=== PATIENT | male | born 1975 | race Caucasian/White ===

== ENCOUNTER 2019-01-29 17:23 | Emergency (ER) | payer SELFPAY ==
[~2019-01-29] VITALS: Ht 167.6 cm; Wt 68.0 kg
[2019-01-29 17:35] VITALS: BP 112/65
[2019-01-29] MEDS ORDERED: LIDOCAINE 1% 500 MG/50 ML VIAL INJ SCH (17:40)
--- NOTE | 2019-01-29 17:43 | NUR ---
PT TO ED 05.
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
[2019-01-29] MEDS ORDERED: MORPHINE SULFATE 2 MG/ML SYR IM ONE (17:50)
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
[2019-01-29] MEDS ORDERED: LIDOCAINE MPF 1% 5mL VIAL ONE (17:55)
--- NOTE | 2019-01-29 17:55 | NUR ---
COMPLETE ASSESSMENT COMPLETED BY NAMAN SORENSON
[2019-01-29] MEDS ORDERED: CLINDAMYCIN 600 MG/4 ML VIAL IM ONE (18:25)
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
--- NOTE | 2019-01-29 19:28 | NUR ---
WOUND CHECKED ON LEFT ELBOW, STILL BLEEDING. DR RICHARDS INFORMED, WILL HOLD PRESSURE FOR 10 MINUTES AND SEE IF THE BLEEDING STOPS. BEFORE APPLYING SLING AND SPLINT.
[2019-01-29 20:01] VITALS: BP 112/65
--- NOTE | 2019-01-29 20:01 | NUR ---
Patient discharged with v/s stable. Written and verbal after care instructions given and explained. Patient alert, oriented and verbalized understanding of instructions. Ambulatory with steady gait. All questions addressed prior to discharge. ID band removed. Patient advised to follow up with PMD. Rx of NORCO, NARCAN, CLINDAMYCIN given. Patient educated on indication of medication including possible reaction and side effects. Opportunity to ask questions provided and answered.
== END 2019-01-29 20:01 | disposition home or self-care (01) ==
LOC: MED 17:23
DX: S42.412A Displaced simple supracondylar fracture without intercondylar fracture of left humerus, initial encounter for closed fracture (principal); S01.01XA Laceration without foreign body of scalp, initial encounter; Y04.0XXA Assault by unarmed brawl or fight, initial encounter; Y93.89 Activity, other specified; Y92.89 Other specified places as the place of occurrence of the external cause; Y99.8 Other external cause status
CPT/HCPCS: 12002; 29105; 73080; 90471; 90715; 96372; 99284; J2001; J2270; J3490; Q0092